=== PATIENT | female | born 1970 | race Caucasian/White ===

== ENCOUNTER 2021-02-20 21:50 | Emergency (ER) | payer MEDICAID, SELFPAY ==
[2021-02-20 21:51] VITALS: BP 155/102; PULSE 90; RESP 16; TEMP 36.4; O2SAT 97; BMI 22.2
--- NOTE | 2021-02-20 22:02 | CT_ITS ---
STUDY: CT ABDOMEN AND PELVIS WITH CONTRAST REASON FOR EXAM: Female, 50 years old. right sided abdominal pain RADIATION DOSAGE (If Supplied By Facility): CTDIvol = ( 11.13 ) mGy, DLP = ( 434.82 ) mGycm TECHNIQUE: Transaxial images were obtained from the dome of the diaphragm to the symphysis pubis without oral contrast. IV 100mL Isovue-300 was administered. Sagittal and coronal images were reconstructed. Individualized dose optimization techniques were used for this CT. COMPARISON: None. FINDINGS: The visualized lung bases are unremarkable. The visualized portions of the heart are within normal limits. There is decreased attenuation of the liver consistent with steatosis. Rodney''s lobe versus hepatomegaly. Normal gallbladder and extrahepatic biliary system. Normal spleen. Normal pancreas. Normal bilateral adrenal glands. Normal right kidney. Normal left kidney. Normal visualized stomach. Normal small intestine. Normal colon. Appendix appears normal. Calcified plaque noted along the aorta and its branches. Normal inferior vena cava. Normal retroperitoneum. Normal urinary bladder. Uterus is normal. 8 mm calcification right adnexa. There is a small umbilical hernia containing fat. 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 CT/Abdomen/Pelvis W IV Cont ONLY IMPRESSION: 8 mm right adnexal calcification. Normal-appearing appendix. No radiodense urolithiasis noted. Electronically Signed: Juan Gill MD at 23:42 EDT , Service support ,
--- NOTE | 2021-02-20 22:03 | EDS_ITS ---
HPI History of Present Illness Chief Complaint: Abd Pain Informant: patient and spouse/S.O. Narrative Narrative: 50-year-old female with past medical history of alcohol abuse presents with concern for abdominal pain and vomiting. States that she has had intermittent vomiting abdominal pain over the past 6 to 8 months. Has been seen as an outpatient where she received EGD as well as colonoscopy which was negative. States that she has had multiple episodes of vomiting today. States that she has lost 30 pounds over this period. Nonbloody nonbilious vomiting. Denies any urinary symptoms. Denies any chest pain, shortness of breath, diaphoresis. Patient does drink approximately a pint of vodka and 4-5 beers per day. PFSH PFSH Medical History Alcohol abuse Anxiety COPD (chronic obstructive pulmonary disease) Depression Hypertension Kidney stones Smoker Home Medications dicyclomine 20 mg PO TID #20 tab 02/20/21 [Rx Last Taken Unknown] ondansetron 4 mg PO Q8H PRN #20 tab 02/20/21 [Rx Last Taken Unknown] Allergy/AdvReac Type Severity Reaction Status Date / Time codeine AdvReac Nausea Verified 02/20/21 21:53 morphine AdvReac Nausea Verified 02/20/21 21:53 Social History Smoking Status: Current every day smoker ROS [facility] ED Constitutional Constitutional ED: Denies chills, fever(s) or sweats Eyes Eyes: Denies blurry vision, change in vision or diplopia ENT ENT ED: Denies rhinorrhea or sore throat Cardiovascular Cardiovascular: Denies chest pain, orthopnea, palpitations or racing heartbeat Respiratory/Chest Respiratory/Chest: Denies cough, dyspnea, dyspnea on exertion, orthopnea or sputum Gastrointestinal Gastrointestinal: Reports abdominal pain, diarrhea, nausea and vomiting; Denies constipation or melena Genitourinary Genitourinary ED: Denies dysuria, hematuria or urinary frequency Musculoskeletal Musculoskeletal: Denies arthralgias, myalgias or neck pain Integumentary Denies rash Neurologic Neurologic: Denies headache(s), paresthesias or weakness Psychiatric Psychiatric: Denies anxiety or depression Hematologic/Lymphatic Hematologic/Lymphatic: Denies easy bleeding or easy bruising Allergic/Immunologic Allergic/Immunologic ED: Denies mouth swelling or tongue swelling EXAM Physical Exam Const Vital Signs: 02/20/21 21:51 Temperature 97.6 F L Temperature Source Temporal Pulse Rate 90 Respiratory Rate 16 Blood Pressure 155/102 H Blood Pressure Mean 119 Pulse Ox 97 Oxygen Delivery Method Room Air Positive well nourished and well developed General Appearance ED: well developed HEENT Reports TM's clear and moist mucous membranes normocephalic and atraumatic Tympanic Membrane ED: Yes TM's clear Eyes PERRL and EOMs intact bilaterally Neck no lymphadenopathy, supple and no JVD Chest Wall inspection of chest normal Resp normal respiratory effort and clear to auscultation bilaterally Cardio regular rate, S1 normal heart sound, S2 normal heart sound and no murmurs Peripheral Pulses: pulses 2+ throughout GI soft to palpation and non-distended GI Narrative: Tenderness to palpation in the right upper and lower quadrant. Hepatomegaly on exam. Back/Spine no CVA tenderness and no thoracic nor lumbar tenderness Extremity normal to inspection General Extremety ED: Negative for edema or tenderness General Extremity: Negative for edema Neuro oriented x3, CN's II-XII intact bilaterally and no sensory deficits noted Sensorium / Orientation: alert Motor Exam: strength 5/5 throughout Psych mental status grossly normal Skin no rashes or lesions noted MDM MDM MDM Narrative Medical decision making narrative: Patient appears well and nontoxic. Vital signs within normal limits other than hypertension. Benign abdominal exam other than hepatomegaly. Patient not actively vomiting. Given 1 L of normal saline as well as Zofran. Feeling improved. Lab work shows elevation in liver enzymes which are likely secondary to her chronic alcoholism. Patient also been given thiamine and folate. Advised on slowly cutting back on her drinking. Patient at this time does not wish to participate in detoxification. Patient will be given Zofran and Bentyl for home. Asked to follow back up with GI. Asked to return for new or worsening symptoms. Patient agreeable and stable time of discharge. Lab Data Attestation: I reviewed the patient's lab results. Labs: Laboratory Results - last 24 hr 02/20/21 02/20/21 02/20/21 22:07 22:07 22:07 WBC 4.4 RBC 4.03 L Hgb 14.3 Hct 40.0 MCV 99.3 H MCH 35.5 H MCHC 35.8 RDW Std Deviation 42.2 RDW Coeff of Alicia 11.5 L Plt Count 95 L MPV 10.1 Immature Gran % (Auto) 0.200 Neut % (Auto) 48.9 Lymph % (Auto) 35.6 [place] % (Auto) 11.7 H Eos % (Auto) 2.5 Baso % (Auto) 1.1 H Absolute Neuts (auto) 2.2 Absolute Lymphs (auto) 1.58 Nucleated RBC % 0 PT 12.4 INR 1.0 Sodium 136 Potassium 3.8 Chloride 101 Carbon Dioxide 22.0 Anion Gap 13 BUN 5 L Creatinine 0.69 Estim Creat Clear Calc 75.43 Est GFR (MDRD) Af Amer 115 Est GFR (MDRD) Non-Af 95 BUN/Creatinine Ratio 7.3 L Glucose 88 Calcium 9.2 Total Bilirubin 0.90 AST 230 H ALT 101 H Alkaline Phosphatase 108 Total Protein 8.0 Albumin 4.6 Globulin 3.4 Albumin/Globulin Ratio 1.4 Lipase 175 Urine Color Urine Clarity Urine pH Ur Specific [place] Urine Protein Urine Glucose (UA) Urine Ketones Urine Occult Blood Urine Nitrite Urine Bilirubin Urine Urobilinogen Ur Leukocyte Esterase Urine RBC Urine WBC Ur Squamous Epith Cells Urine Bacteria Urine Mucus 02/20/21 22:10 WBC RBC Hgb Hct MCV MCH MCHC RDW Std Deviation RDW Coeff of Alicia Plt Count MPV Immature Gran % (Auto) Neut % (Auto) Lymph % (Auto) Sweet [place] % (Auto) Eos % (Auto) Baso % (Auto) Absolute Neuts (auto) Absolute Lymphs (auto) Nucleated RBC % PT INR Sodium Potassium Chloride Carbon Dioxide Anion Gap BUN Creatinine Estim Creat Clear Calc Est GFR (MDRD) Af Amer Est GFR (MDRD) Non-Af BUN/Creatinine Ratio Glucose Calcium Total Bilirubin AST ALT Alkaline Phosphatase Total Protein Albumin Globulin Albumin/Globulin Ratio Lipase Urine Color Yellow Urine Clarity Clear Urine pH 6.5 Ur Specific [place] 1.015 Urine Protein 100 H Urine Glucose (UA) Normal Urine Ketones 5 H Urine Occult Blood 50 H Urine Nitrite Negative Urine Bilirubin 1 H Urine Urobilinogen 4 H Ur Leukocyte Esterase 25 H Urine RBC 0-5 SEEN Urine WBC 0-5 SEEN Ur Squamous Epith Cells 10-25 SEEN Urine Bacteria RARE Urine Mucus 0 SEEN Radiography Diagnostic Testing: Radiology Impression Abdomen/Pelvis CT 02/20/21 22:02 IMPRESSION: 8 mm right adnexal calcification. Normal-appearing appendix. No radiodense urolithiasis noted. Electronically Signed: Juan Gill MD at 23:42 EDT , Service support , Discharge Plan Triage Chief Complaint: Abd Pain ED Provider: Waqar Oliveira Dx/Rx/DC Orders Clinical Impression: Vomiting, Alcohol abuse Instructions: ED Vomiting (Adult), ED Alcohol Abuse Prescriptions: New dicyclomine 20 mg tablet 20 mg PO TID Qty: 20 RF: 0 ondansetron 4 mg tablet,disintegrating 4 mg PO Q8H PRN (Reason: nausea and vomiting) Qty: 20 RF: 0 Primary Care Provider: Jose Roe Referrals: Jose Roe MD [Primary Care Provider] - 2 Days Disposition Patient Disposition: Home, self care
[2021-02-20] MEDS: Ondansetron 4 MG/2 ML Vial IV (22:23)
[2021-02-20] MEDS: 0.9% Normal Saline 1,000 ML 1000 ML IV (22:23)
[2021-02-20 22:36] LABS: Mucous, Urine 0 SEEN /hpf (<or=2+)
[2021-02-20 22:37] LABS: Color, Urine Yellow (Yellow); Glucose, Dipstick Normal (Normal); Ketone-Dipstick 5 mg/dl (Negative); Leukocyte Esterase-Dipstick 25 /ul (Negative); Nitrite-Dipstick Negative (Negative); Occult Blood-Urine 50 /ul (Negative); Protein-Dipstick 100 mg/dl (Negative); Specific Gravity, Urine 1.015 (1.002-1.030); Urine Clarity Clear (Clear); Urine Urobilinogen 4 mg/dl (Normal); Urine pH 6.5 (5.0 - 8.0)
[2021-02-20 22:38] LABS: Absolute Lymphocyte Count 1.58 X10^3/uL (0.83-4.51); Absolute Neutrophil Count 2.2 X10^3/uL (2.0-7.7); Basophil# 0.05 X10^3/uL; Basophil% 1.1 % (0-1); Eosinophil# 0.11 X10^3/uL; Eosinophils% 2.5 % (0-5); Hemoglobin 14.3 g/dL (12.0-15.0); Lymphocyte # 1.58 X10^3/ul (0.83-4.51); Lymphocyte % 35.6 % (19-41); Mean Corp Hgb Conc 35.8 g/dL (32-36); Mean Corpuscular Hgb 35.5 pg (27.0-32.0); Mean Corpuscular Volume 99.3 fL (81-99); Mean Platelet Vol. 10.1 fl (6.2-12.0); Monocyte# 0.52 X10^3/uL; Monocyte% 11.7 % (0-10); NRBC Flagged by Analyzer 0 % (0-5); Neutrophil # 2.17 X10^3/uL (2.7-7.7); Neutrophil % 48.9 % (47-70); POSITIVE COUNT YES; Platelet Count 95 K/mm3 (150-450); RBC Distribution Width CV 11.5 % (11.6-14.6); RBC Distribution Width SD 42.2 fl (35.1-43.9); Red Blood Count 4.03 M/mm3 (4.2-5.4); White Blood Count 4.4 K/mm3 (4.4-11.0)
[2021-02-20 22:41] LABS: Urine Bilirubin Dipstick 1 mg/dL (Negative)
[2021-02-20 22:42] LABS: Red Blood Cells-Urine 0-5 SEEN /hpf (0-5); Squamous Epithelial Cells - UA 10-25 SEEN /hpf (5-10); White Blood Cells 0-5 SEEN /hpf (0-5)
[2021-02-20 22:43] LABS: Bacteria RARE /hpf (None Seen)
[2021-02-20 22:53] LABS: ALB/GLOB Ratio 1.4 RATIO (0.9-2.4); AST(SGOT) 230 U/L (15-37); Alanine Aminotransfer ALT/SGPT 101 U/L (13-56); Albumin, Serum 4.6 g/dL (3.2-5.0); Alkaline Phosphatase 108 U/L (45-117); Anion Gap 13 (5-15); BUN 5 mg/dL (7-18); BUN/Creat Ratio 7.3 RATIO (10-20); Calcium,Total 9.2 mg/dL (8.5-10.1); Chloride 101 mmol/L (98-107); Creatinine, Serum 0.69 mg/dL (0.55-1.02); EST Glomerular Filtration Rate 95 mL/min (>60); Est Glom Filt Rate - Afr Amer 115 mL/min (>60); Estimated Creatinine Clearance 75.43 ml/min; Globulin 3.4 g/dL (2.2-4.2); Glucose 88 mg/dL (74-106); Lipase 175 U/L (73-393); Potassium 3.8 mmol/L (3.5-5.1); Sodium Level 136 mmol/L (136-145)
[2021-02-20 23:02] LABS: Differential Indicated SCAN CRITERIA MET
[2021-02-20 23:16] LABS: Prothrombin Time (Protime)PT. 12.4 SECONDS (11.7-14.9)
[2021-02-21 00:09] VITALS: BP 146/79; PULSE 76; RESP 14; O2SAT 97
== END 2021-02-21 00:10 | disposition home or self-care (01) ==
PROVIDERS: Emergency Provider Emergency Medicine
DX: R10.9 Unspecified abdominal pain (principal); R11.2 Nausea with vomiting, unspecified; J44.9 Chronic obstructive pulmonary disease, unspecified; I10 Essential (primary) hypertension; F10.20 Alcohol dependence, uncomplicated; F32.9 Major depressive disorder, single episode, unspecified; F41.9 Anxiety disorder, unspecified; F17.200 Nicotine dependence, unspecified, uncomplicated; Z79.899 Other long term (current) drug therapy; Z87.442 Personal history of urinary calculi
CPT/HCPCS: 74177; 80053; 81001; 83690; 85025; 85610; 96361; 96365; 96367; 96375; 99283; J7030; Q9967; A4216; J2405; J3490